=== PATIENT | male | born 1995 | race Caucasian/White ===

== ENCOUNTER 2019-08-13 15:59 | Emergency (ER) | payer OTHER ==
[2019-08-13] MEDS ORDERED: Lidocaine 1% (PF) 30 ML VIAL ONE (16:27)
[2019-08-13] MEDS ORDERED: Triple Antibiotic Oint 1 GM Packet ONE (17:14)
--- NOTE | 2019-08-13 17:27 | CT ---
CT cervical spine without contrast: 08/13/2019 COMPARISON: None available HISTORY: Fall, trauma, pain TECHNIQUE: Axial CT imaging at 2.5 mm intervals through the cervical spine without contrast. Coronal and sagittal reformatted imaging obtained. Findings: The craniocervical junction and cervicothoracic junction are intact. There is straightening of the normal cervical lordosis which could be on the basis of spasm or collar placement. There is soft tissue stranding involving the subcutaneous fat posterior to the midline C6, C7, and T1 spinous processes which could be related to direct contusion. If there is clinical concern for ligamentous injury, MRI recommended. No displaced fracture. No evidence for dislocation. IMPRESSION: Stranding of the subcutaneous fat posterior to the spinous processes of the C6, C7, and T 1 levels, which may reflect direct contusion or edema from a flexion injury. If there is clinical concern for ligamentous injury, cervical spine MRI recommended. No acute fracture or dislocation seen .
== END 2019-08-13 17:21 | disposition home or self-care (01) ==
LOC: NAV ERS 15:59
DX: S01.81XA Laceration without foreign body of other part of head, initial encounter (principal); S16.1XXA Strain of muscle, fascia and tendon at neck level, initial encounter; Z79.899 Other long term (current) drug therapy; W01.10XA Fall on same level from slipping, tripping and stumbling with subsequent striking against unspecified object, initial encounter
CPT/HCPCS: 12011; 72125; J2001